=== PATIENT | female | born 1955 | race Caucasian/White ===

== ENCOUNTER 2022-01-21 08:12 | Outpatient (CLI) | payer OTHER, SELFPAY ==
[2022-01-26 13:21] LABS: HPV APTIMA, High Risk Negative (Negative)
== END 2022-01-21 23:59 | disposition home or self-care (01) ==
PROVIDERS: Visit Provider Obstetrics & Gynecology
DX: Z12.4 Encounter for screening for malignant neoplasm of cervix (principal)
CPT/HCPCS: 87624; 88175; G0145

== ENCOUNTER → 2022-03-18 | Outpatient (CLI) | payer OTHER, SELFPAY ==
--- NOTE | 2022-03-18 10:07 | BI_ITS ---
MAMMOGRAPHY - BILATERAL SCREENING REASON FOR EXAM: Female, 66 years old. Routine annual screening examination. PERTINENT HISTORY: Non-contributory. TECHNIQUE: Digital bilateral breast susanne (3D mammographic acquisition) in the CC and MLO projections. 2-D mediolateral oblique (MLO) and craniocaudad (CC) views of both breasts were obtained. CAD: Full Field Digital Mammography with Computer Added Detection was performed. COMPARISON: None. Baseline examination. FINDINGS: Breast Composition: There are scattered areas of fibroglandular density. There are no dominant masses or suspicious calcifications. Small benign-appearing bilateral axillary lymph nodes. No other significant abnormalities are identified. BI/SCRN MAMM (CAD)W/SUSANNE BILAT IMPRESSION: Negative screening mammogram. Yearly followup mammogram recommended. (A) ASSESSMENT CATEGORY: BIRADS Category 2: Benign. A letter regarding these results will be sent to the patient by the facility within 30 days. Approximately 10% of breast cancers are not detected by mammography. A normal mammogram should not delay biopsy of a clinically suspicious abnormality. [id number] Electronically Signed: Horacio Martinez MD at 10:46 EDT ,
== END | disposition home or self-care (01) ==
LOC: OPBI 10:06
PROVIDERS: Referring Provider Obstetrics & Gynecology; Visit Provider Obstetrics & Gynecology
DX: Z12.31 Encounter for screening mammogram for malignant neoplasm of breast (principal)
CPT/HCPCS: 77063; 77067

== ENCOUNTER → 2025-05-02 | Outpatient (CLI) | payer MEDICARE, SELFPAY ==
[2025-05-02 12:40] LABS: Absolute Lymphocyte Count 1.28 X10^3/uL (0.83-4.51); Absolute Neutrophil Count 3.2 X10^3/uL (2.0-7.7); Basophil# 0.03 X10^3/uL; Basophil% 0.6 % (0-1); Eosinophil# 0.05 X10^3/uL; Hematocrit 36.1 % (37-47); Lymphocyte # 1.28 X10^3/ul (0.83-4.51); Mean Corp Hgb Conc 33.2 g/dL (32-36); Mean Corpuscular Hgb 29.1 pg (27.0-32.0); Mean Corpuscular Volume 87.4 fL (81-99); Mean Platelet Vol. 10.2 fl (6.2-12.0); Monocyte# 0.33 X10^3/uL; Monocyte% 6.7 % (0-10); NRBC Flagged by Analyzer 0 % (0-5); Neutrophil # 3.23 X10^3/uL (2.7-7.7); Neutrophil % 65.5 % (47-70); Platelet Count 228 K/mm3 (150-450); RBC Distribution Width CV 14.1 % (11.6-14.6); RBC Distribution Width SD 45.1 fl (35.1-43.9); Red Blood Count 4.13 M/mm3 (4.2-5.4); White Blood Count 4.9 K/mm3 (4.4-11.0)
[2025-05-02 14:12] LABS: Cholesterol 239 mg/dL (<=200); High Density Lipoprotein 60 mg/dL; Low Density Lipoprotein Calc. 164 mg/dL; Triglycerides 78 mg/dL; Very Low Density Lipoprotein 16 mg/dL (5-40); cholesterol:hdl ratio screen 3.99
[2025-05-02 14:32] LABS: ALB/GLOB Ratio 1.9 RATIO (0.9-2.4); AST(SGOT) 24 U/L (<=31); Alanine Aminotransfer ALT/SGPT 18 U/L (<=34); Albumin, Serum 4.6 g/dL (3.4-4.8); Alkaline Phosphatase 81 U/L (35-104); Anion Gap 11 (5-15); BUN 14 mg/dL (4-19); BUN/Creat Ratio 16.6 RATIO (10-20); Calcium,Total 9.9 mg/dL (7.6-11.0); Carbon Dioxide 24.9 mmol/L (21.0-32.0); Chloride 103 mmol/L (98-108); Creatinine, Serum 0.85 mg/dL (0.70-1.20); EST Glomerular Filtration Rate 74 (>60); Globulin 2.4 g/dL (2.2-4.2); Glucose 101 mg/dL (70-99); Potassium 4.5 mmol/L (3.3-5.1); Sodium Level 139 mmol/L (133-145); Total Bilirubin 0.41 mg/dL (0.00-1.30)
== END | disposition home or self-care (01) ==
PROVIDERS: PCP Physician Assistant; Referring Provider Physician Assistant; Visit Provider Physician Assistant
DX: Z00.00 Encounter for general adult medical examination without abnormal findings (principal)
CPT/HCPCS: 36415; 80053; 80061; 84443; 85025

== ENCOUNTER 2025-09-03 09:00 | Outpatient (RCR) | payer MEDICARE, SELFPAY ==
--- NOTE | 2025-07-29 15:39 | HP.OTEVAL ---
Patient's Visit Information Visit Information Visit Information: HEATHER URIBE is a 70 year old F, referred to Occupational Therapy by SHEILA Jimenez, with a diagnosis of cmc OA, Radial styloid tenosynovitis. Date of Evaluation: 07/29/25 Occupational Therapist: ARTURO Bradley/Sergio, CHT Subjective Subjective: This 70 year old female was seen for OT eval with dx right CMC osteoarthritis, Radial styloid tenosynovitis ( [place]) and pain of wrist. pt reports she had had pain on/off for about a year. pt states she has had cortisone injections with poor results- pt continues to have pain and even at rest painful. 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 Pt limited with tasks at this time due to pain. pt would like to know what she can do to decrease her pain and return to her PLOF. Pain right wrist: Current Pain Intensity: 0 Pain Intensity Range: 7 ROM Wrist: right 65/40 left 65/55 CMC: right 15* left 30* MP: right 35* left 35* IP: right 65 left 60* Palmar Abduction: right 40* left 35* ROM Comments: right UD 30* RD 5* due to pain at end rage left UD 20* RD20* ( pain at end rage ) Strength Development Intern: right45# left 50* pain with resistive testing Lateral Pinch: right 10# left 8# Tripod Pinch: right 8# left 8# Sensation Sensation Comments: denies Goals Goal:: pt will demo the ability to reach end range wrist ROM by 10* or more with pain no greater than 1/10 by d/c Goal:: pt will report no pain greater than 2/10 with use of right UE with ADls by d/c Goal:: Pt will demonstrate understanding of joint protection and adaptive equipment to decrease joint stress while performing ADL tasks by d/c Pt will demo understanding of joint protection alissa. with lift/carry/ holding phone/craft ergonomics to decrease stress on tendons to increase pts independent with ADLs, IADLS and work tasks by d/c. Goal:: Pt will demo understanding of using supportive bracing 80% of workday/ADLS to decrease stress on tendon origin to allow healing and decrease pain by end of 2nd session. Rehabilitation General Assessment: pt demo with painful thumb/wrist that limits her IND with daily tasks. Pt would benefit from further skilled OT services 1-2x week for 4 weeks to assist pt on reaching her max. rehab potential. Today therapist ed. pt on joint protection, thumb care and avoiding tendon/joint stress with tasks- pt demo understanding. Rehabilitation Potential: Good Anticipated Interventions Anticipated Interventions: A/AAROM/PROM, Strengthening, Triggerpoint Release, Modalities, Orthoses, Joint Protection/Energy Conservation, Ergonomic Education, Fine Motor Coord/Edy, ADL Training, Education re assistive Equipment, Education re Diagnosis and Home Program Visit Plan Frequency: 2x /Week Duration: 4 Weeks General Plan: decrease pain ed. pt on supportive brace wrist and thumb ergo to decrease joint/tendon stress wrist and thumb stabilization ex. TEXT: Thank you for the opportunity to evaluate your patient. For Medicare and Medicare HMO plans, please review the plan of care and approve it. It will need to be FAXED BACK to us at [phone] for Medicare purposes. Please let me know if there are questions or concerns regarding this plan of care. Physician Signature: Date:
--- NOTE | 2025-09-03 09:31 | HP.OTDCSUM ---
Discharge Summary D/C Summary: It has been my pleasure to treat HEATHER URIBE under orders from SHEILA Jimenez, for the diagnosis of cmc OA, Radial styloid tenosynovitis for a total of 4 visit(s). Please see the following information for a summary of their discharge status. Overall Improvement % Improvement: 70 Objective Objective/Function: right wrist ROM 60/35 a decrease from 65/40 left wrist ROM 70/55 a increase from 65/55 right UD 25 * right RD 20 increase 5* left UD 30* left RD 15* PA right 45* left 45* pt states her pain level is better- she is doing more with ADLs and IADLs- states she is ready for d/c and will cont. with HEP. Goals Patient Goals: Decrease Pain, Use Hand/Wrist/Arm Normally Again, Be More Independent in ADLS and Resume Former Household Responsibilities (Cooking,Cleaning,Yard, etc.) Goal:: pt will demo the ability to reach end range wrist ROM by 10* or more with pain no greater than 1/10 by d/c Goal:: pt will report no pain greater than 2/10 with use of right UE with ADls by d/c Goal:: Pt will demonstrate understanding of joint protection and adaptive equipment to decrease joint stress while performing ADL tasks by d/c Pt will demo understanding of joint protection alissa. with lift/carry/ holding phone/craft ergonomics to decrease stress on tendons to increase pts independent with ADLs, IADLS and work tasks by d/c. Goal:: Pt will demo understanding of using supportive bracing 80% of workday/ADLS to decrease stress on tendon origin to allow healing and decrease pain by end of 2nd session. D/C Information Discharge Comments: pt states her pain level is better- she is doing more with ADLs and IADLs- states she is ready for d/c and will cont. with HEP. d/c sentence: If there are questions or concerns regarding this patient's occupational therapy, please fell free to call me at [phone]. Thank you for the referral of this patient. Sincerely, Sandra Cabral, OTR/L, CHT
== END 2025-09-03 09:49 | disposition home or self-care (01) ==
LOC: OT 09:00
PROVIDERS: PCP Physician Assistant; Referring Provider Physician Assistant Surgical; Visit Provider Physician Assistant Surgical
DX: M25.531 Pain in right wrist (principal)
CPT/HCPCS: 97110; 97140; 97166; 97530